=== PATIENT | female | born 1975 | race Caucasian/White ===

== ENCOUNTER 2017-06-12 15:01 | Emergency (ER) | payer BC ==
[2017-06-12] MEDS ORDERED: Ketorolac 60 MG/2 ML SDV IM ONE (15:25)
--- NOTE | 2017-06-12 15:55 | EDM.PDOC ---
ED HPI GENERAL MEDICAL PROBLEM - General Chief Complaint: Lower Extremity Injury/Pain Stated Complaint: left foot pain from fall Time Seen by Provider: 06/12/17 15:25 Source of Information: Reports: Patient History Limitations: Reports: No Limitations - History of Present Illness INITIAL COMMENTS - FREE TEXT/NARRATIVE: HISTORY AND PHYSICAL: History of present illness: Patient is a 42-year-old female who presents to the emergency room today with complaints of left ankle pain after falling down one step. She states that she fell forward twisting her left ankle prior to arrival. Patient points to her left lateral ankle as the source of pain. Denies any previous injury to the affected extremity. Denies any numbness or tingling to the extremity. Denies hitting her head or any loss of consciousness. Review of systems: As per history of present illness and below otherwise all systems reviewed and negative. Past medical history: As per history of present illness and as reviewed below otherwise noncontributory. Surgical history: As per history of present illness and as reviewed below otherwise noncontributory. Social history: No reported history of drug or alcohol abuse. Family history: As per history of present illness and as reviewed below otherwise noncontributory. Physical exam: General: Well-developed and well-nourished 42-year-old female. Able to speak in full sentences without shortness of breath. Alert and oriented. HEENT: Atraumatic, normocephalic, pupils reactive, negative for conjunctival pallor or scleral icterus, mucous membranes moist, throat clear, neck supple, nontender, trachea midline. Lungs: Clear to auscultation, breath sounds equal bilaterally, chest nontender. Heart: S1S2, regular, negative for clicks, rubs, or JVD. Abdomen: Soft, nondistended, nontender. Negative for masses or hepatosplenomegaly. Negative for costovertebral tenderness. Pelvis: Stable nontender. Genitourinary: Deferred. Rectal: Deferred. Extremities/Skin: Mild swelling noted to left lateral ankle, tenderness with palpation. Strong pedal pulses bilaterally. Skin is warm, dry, intact. negative for cords or calf pain. Neurovascular unremarkable. Neuro: Awake, alert, oriented. Cranial nerves II through XII unremarkable. Cerebellum unremarkable. Motor and sensory unremarkable throughout. Exam nonfocal. Patient is weightbearing although this does cause her discomfort to the left lower extremity. Palpated the patella and the proximal tib-fib with no discomfort or tenderness. Patient does have tenderness above the left lateral ankle into the distal fibula. Patient has full range of motion of the knee with a negative drawer test. Offered the patient some Toradol for discomfort, which she is agreeable to at this time. Discussed with patient the x-ray findings. She needs to follow-up with orthopedic provider in the next 1-2 days. Instructed patient to take the pain medication as prescribed. She may take additional ibuprofen as needed for breakthrough pain. Be non-weightbearing to the affected extremity and wear the Cam Walker boot and crutches as directed. Rest ice and elevate the affected extremity. Diagnostics: X-ray Therapeutics: Toradol Impression: Nondisplaced fibula fracture, left Plan: 1. Please use the cam walker boot and crutches as directed over the next couple days. Rest, ice, elevate the affected extremity throughout the day. 2. You may take Tylenol and/or ibuprofen as needed throughout the day for pain and swelling relief. Please use the [place] as needed for pain and discomfort. This medication may cause drowsiness he do not take it when needing to be functioning or driving. 3. If you continue to have problems and would like you to follow-up with orthopedic provider in the next 1-2 days. Return to the ED as needed as discussed Definitive disposition and diagnosis as appropriate pending reevaluation and review of above. Onset: Today Duration: Hour(s): Location: Reports: Lower Extremity, Left left foot Pain Score (Numeric/FACES): 8 - Related Data Allergies Allergy/AdvReac Type Severity Reaction Status Date / Time No Known Allergies Allergy Verified 06/12/17 15:03 Home Meds: Home Meds . [No Known Home Meds] 06/12/17 [History] Past Medical History - Past Health History Medical/Surgical History: Denies Medical/Surgical History [employer] History: Reports: Social & Family History - Family History Family Medical History: Noncontributory - Tobacco Use Smoking Status *Q: Never Smoker - Recreational Drug Use Recreational Drug Use: No Review of Systems - Review of Systems Review Of Systems: ROS reveals no pertinent complaints other than HPI. ED EXAM, GENERAL - Physical Exam Exam: See Below (See dictation) Course - Vital Signs Last Recorded V/S: Last Vital Signs Temp 36.7 C 06/12/17 15:01 Pulse 85 06/12/17 15:01 Resp 18 06/12/17 15:01 BP 134/77 06/12/17 15:01 Pulse Ox 96 06/12/17 15:01 - Orders/Labs/Meds Orders: Active Orders 24 hr Category Date Time Status DME for Discharge [COMM] Stat Oth 06/12/17 16:20 Ordered Meds: Medications Discontinued Medications Generic Name Dose Route Start Last Admin Trade Name Lenny PRN Reason Stop Dose Admin Ketorolac Tromethamine 60 mg 06/12/17 15:25 06/12/17 15:35 Toradol IM 06/12/17 15:26 60 mg ONETIME ONE Administration Departure - Departure Time of Disposition: 16:23 Disposition: Home, Self-Care 01 Condition: Good Clinical Impression: Fibula fracture Qualifiers: Encounter type: initial encounter Fibula location: distal Fracture type: closed Fracture morphology: unspecified fracture morphology Laterality: left Qualified Code(s): S82.832A - Other fracture of upper and lower end of left fibula, initial encounter for closed fracture - Discharge Information Referrals: PCP,None [Primary Care Provider] - Forms: ED Department Discharge Additional Instructions: My general discharge The following information is given to patients seen in the emergency department who are being discharged to home. This information is to outline your options for follow-up care. We provide all patients seen in our emergency department with a follow-up referral. The need for follow-up, as well as the timing and circumstances, are variable depending upon the specifics of your emergency department visit. If you don't have a primary care physician on staff, we will provide you with a referral. We always advise you to contact your personal physician following an emergency department visit to inform them of the circumstance of the visit and for follow-up with them and/or the need for any referrals to a consulting specialist. The emergency department will also refer you to a specialist when appropriate. This referral assures that you have the opportunity for follow-up care with a specialist. All of these measure are taken in an effort to provide you with optimal care, which includes your follow-up. Under all circumstances we always encourage you to contact your private physician who remains a resource for coordinating your care. When calling for follow-up care, please make the office aware that this follow-up is from your recent emergency room visit. If for any reason you are refused follow-up, please contact the [facility] Emergency Department at and asked to speak to the emergency department charge nurse. [facility] Professional [address], [address] [place] [address] 1. Please use the cam walker boot and crutches as directed over the next couple days. Rest, ice, elevate the affected extremity throughout the day. 2. You may take ibuprofen as needed throughout the day for pain and swelling relief. Please use the [place] as needed for pain and discomfort. This medication may cause drowsiness he do not take it when needing to be functioning or driving. 3. Please follow-up with orthopedic provider in the next 1-2 days. Return to the ED as needed as discussed - My Orders Last 24 Hours: My Active Orders 06/12/17 16:20 DME for Discharge [COMM] Stat - Assessment/Plan Last 24 Hours: My Active Orders 06/12/17 16:20 DME for Discharge [COMM] Stat
--- NOTE | 2017-06-12 16:07 | CR ---
EXAMINATION: Left ankle HISTORY: Pain COMPARISON: None TECHNIQUE: 3 views FINDINGS/IMPRESSION: There is a nondisplaced distal fibular fracture noted with overlying soft tissue swelling. Remaining osseous structures joint spaces appear intact. Bone mineralization and ankle mor tise are otherwise preserved.
[2017-06-12 16:42] VITALS: BP 142/76
== END 2017-06-12 16:40 | disposition home or self-care (01) ==
LOC: MW.ED 15:01
DX: S82.832A Other fracture of upper and lower end of left fibula, initial encounter for closed fracture (principal); W10.9XXA Fall (on) (from) unspecified stairs and steps, initial encounter
CPT/HCPCS: 73610; 96372; 99283; J1885

== ENCOUNTER 2020-02-27 19:18 | Observation (INO) | payer BC ==
[2020-02-27] MEDS ORDERED: Sodium Chloride 0.9% 10 ML Syringe FLUSH PRN (19:19)
[2020-02-27] MEDS ORDERED: Sodium Chloride 0.9% 2.5 ML Syringe FLUSH PRN (19:19)
--- NOTE | 2020-02-27 19:22 | EDM.PDOC ---
ED HPI GENERAL MEDICAL PROBLEM - General Chief Complaint: Chest Pain Stated Complaint: CHEST ISSUES Time Seen by Provider: 02/27/20 19:19 Source of Information: Reports: Patient History Limitations: Reports: No Limitations - History of Present Illness INITIAL COMMENTS - FREE TEXT/NARRATIVE: 44-year-old female with no past medical or surgical history presents with left- sided chest discomfort. She was asleep in her chest discomfort woke her up, rated at 10/10, described as tightness, constant, radiates to her left shoulder blade, with no alleviating or exacerbating factors. Associated with shortness of breath, nausea, clamminess. She took 3 ibuprofen and 2 Tylenol, currently pain is back down to 1/10 described as aching sensation in her upper back. She denies fever, cough, palpitations. She denies any recent surgery, long travels, control use, leg pain or swelling, recent trauma, history of DVT or PE. She does not smoke and she does not take any medications. ROS: A 10-point review of systems, other than pertinent positives and negatives as stated per HPI, is otherwise negative PHYSICAL EXAM General: AOx4, GCS = 15, No distress HEENT: dry mucous membrane Neck: supple, no meningismus, no Kernig or Brudzinski Cardiac: S1S2 RRR Chest wall: Nontender to chest wall. Respiratory: CTAB, no crackles or rales, no wheezing Abdomen: Soft, nontender, no rebound or guarding, nondistended, no pulsatile mass. 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 EKG and rhythm strip interpreted by me at 0720 Course - Vital Signs Last Recorded V/S: Last Vital Signs Temp 98.3 F 02/27/20 19:19 Pulse 70 02/27/20 23:32 Resp 18 02/27/20 23:32 BP 121/75 02/27/20 23:32 Pulse Ox 95 02/27/20 23:32 - Orders/Labs/Meds Orders: Active Orders 24 hr Category Date Time Status Cardiac Monitoring [RC] . DIRECTED Care 02/27/20 19:19 Active EKG Documentation Completion [RC] STAT Care 02/27/20 19:19 Active Pulse Oximetry [RC] ASDIRECTED Care 02/27/20 19:19 Active Sodium Chloride 0.9% [Saline Flush] Med 02/27/20 19:19 Active 10 ml FLUSH ASDIRECTED PRN Sodium Chloride 0.9% [Saline Flush] Med 02/27/20 19:19 Active 2.5 ml FLUSH ASDIRECTED PRN Saline Lock Insert [OM.PC] Stat Oth 02/27/20 19:19 Ordered Medication Orders Sodium Chloride (Saline Flush) 10 ml FLUSH ASDIRECTED PRN PRN Reason: Keep Vein Open Sodium Chloride (Saline Flush) 2.5 ml FLUSH ASDIRECTED PRN PRN Reason: Keep Vein Open Labs: Laboratory Tests 02/27/20 02/27/20 02/27/20 Range/Units 19:25 19:25 19:25 WBC 9.55 (4.0-11.0) K/uL RBC 4.55 (4.30-5.90) M/uL Hgb 13.9 (12.0-16.0) g/dL Hct 42.6 (36.0-46.0) % MCV 93.6 (80.0-98.0) fL MCH 30.5 (27.0-32.0) pg MCHC 32.6 (31.0-37.0) g/dL RDW Std Deviation 46.9 (28.0-62.0) fl RDW Coeff of Gilbert 14 (11.0-15.0) % Plt Count 255 (150-400) K/uL MPV 10.10 (7.40-12.00) fL Neut % (Auto) 71.5 (48.0-80.0) % Lymph % (Auto) 18.6 (16.0-40.0) % [place] % (Auto) 9.0 (0.0-15.0) % Eos % (Auto) 0.7 (0.0-7.0) % Baso % (Auto) 0.2 (0.0-1.5) % Neut # (Auto) 6.8 H (1.4-5.7) K/uL Lymph # (Auto) 1.8 (0.6-2.4) K/uL [place] # (Auto) 0.9 H (0.0-0.8) K/uL Eos # (Auto) 0.1 (0.0-0.7) K/uL Baso # (Auto) 0.0 (0.0-0.1) K/uL Nucleated RBC % 0.0 /100WBC Nucleated RBCs # 0 K/uL INR 0.98 Sodium 137 (136-145) mmol/L Potassium 3.5 (3.5-5.1) mmol/L Chloride 101 (98-107) mmol/L Carbon Dioxide 24.3 (21.0-32.0) mmol/L BUN 11 (7.0-18.0) mg/dL Creatinine 1.0 (0.6-1.0) mg/dL Est Cr Clr Drug Dosing 61.35 mL/min Estimated GFR (MDRD) 60.0 ml/min Glucose 111 H (74-106) mg/dL Calcium 9.2 (8.5-10.1) mg/dL Total Bilirubin 0.3 (0.2-1.0) mg/dL AST 18 (15-37) IU/L ALT 25 (14-63) IU/L Alkaline Phosphatase 73 (46-116) U/L Troponin I < 0.050 (0.000-0.056) ng/mL Total Protein 7.7 (6.4-8.2) g/dL Albumin 4.2 (3.4-5.0) g/dL Globulin 3.5 (2.6-4.0) g/dL Albumin/Globulin Ratio 1.2 (0.9-1.6) SARS-CoV-2 RNA (RT-PCR) (NEGATIVE) 02/27/20 02/27/20 Range/Units 21:20 21:33 WBC (4.0-11.0) K/uL RBC (4.30-5.90) M/uL Hgb (12.0-16.0) g/dL Hct (36.0-46.0) % MCV (80.0-98.0) fL MCH (27.0-32.0) pg MCHC (31.0-37.0) g/dL RDW Std Deviation (28.0-62.0) fl RDW Coeff of Gilbert (11.0-15.0) % Plt Count (150-400) K/uL MPV (7.40-12.00) fL Neut % (Auto) (48.0-80.0) % Lymph % (Auto) (16.0-40.0) % [place] % (Auto) (0.0-15.0) % Eos % (Auto) (0.0-7.0) % Baso % (Auto) (0.0-1.5) % Neut # (Auto) (1.4-5.7) K/uL Lymph # (Auto) (0.6-2.4) K/uL [place] # (Auto) (0.0-0.8) K/uL Eos # (Auto) (0.0-0.7) K/uL Baso # (Auto) (0.0-0.1) K/uL Nucleated RBC % /100WBC Nucleated RBCs # K/uL INR Sodium (136-145) mmol/L Potassium (3.5-5.1) mmol/L Chloride (98-107) mmol/L Carbon Dioxide (21.0-32.0) mmol/L BUN (7.0-18.0) mg/dL Creatinine (0.6-1.0) mg/dL Est Cr Clr Drug Dosing mL/min Estimated GFR (MDRD) ml/min Glucose (74-106) mg/dL Calcium (8.5-10.1) mg/dL Total Bilirubin (0.2-1.0) mg/dL AST (15-37) IU/L ALT (14-63) IU/L Alkaline Phosphatase (46-116) U/L Troponin I < 0.050 (0.000-0.056) ng/mL Total Protein (6.4-8.2) g/dL Albumin (3.4-5.0) g/dL Globulin (2.6-4.0) g/dL Albumin/Globulin Ratio (0.9-1.6) SARS-CoV-2 RNA (RT-PCR) NEGATIVE (NEGATIVE) Meds: Medications Generic Name Dose Route Start Last Admin Trade Name Freq PRN Reason Stop Dose Admin Sodium Chloride 10 ml 02/27/20 19:19 Saline Flush FLUSH ASDIRECTED PRN Keep Vein Open Sodium Chloride 2.5 ml 02/27/20 19:19 Saline Flush FLUSH ASDIRECTED PRN Keep Vein Open Discontinued Medications Generic Name Dose Route Start Last Admin Trade Name Freq PRN Reason Stop Dose Admin Iopamidol 50 ml 02/27/20 20:46 02/27/20 20:46 [id number] (76%) IV 02/27/20 20:47 50 ml ONETIME STA Administration - Re-Assessments/Exams Free Text/Narrative Re-Assessment/Exam: 02/27/20 23:[address] Dee, who agrees to admit to obs/tele and assume care at this point. The hospitalist's documentation supersedes all other documentation on this patient with regard to any conflicts or discrepancies from this point forward. Any emergency conditions have been treated to the ability of the ED prior to admission. MDM: Patient has a HEART score of 4, will admit for further workup. She is chest pain free at the moment. Departure - Departure Time of Disposition: 23:35 Disposition: Refer to Observation Condition: Good Clinical Impression: Atypical chest pain Referrals: PCP,Unknown [Primary Care Provider] - Forms: ED Department Discharge Sepsis Event Note (ED) - Focused Exam Vital Signs: Vital Signs Temp Pulse Resp BP Pulse Ox 02/27/20 23:32 70 18 121/75 95 02/27/20 22:34 70 16 157/81 H 99 02/27/20 21:30 72 18 156/74 H 97 02/27/20 19:19 98.3 F 99 18 153/88 H 98 - My Orders Last 24 Hours: My Active Orders 02/27/20 19:19 Cardiac Monitoring [RC] . DIRECTED EKG Documentation Completion [RC] STAT Pulse Oximetry [RC] ASDIRECTED Sodium Chloride 0.9% [Saline Flush] 10 ml FLUSH ASDIRECTED PRN Sodium Chloride 0.9% [Saline Flush] 2.5 ml FLUSH ASDIRECTED PRN Saline Lock Insert [OM.PC] Stat - Assessment/Plan Last 24 Hours: My Active Orders 02/27/20 19:19 Cardiac Monitoring [RC] . DIRECTED EKG Documentation Completion [RC] STAT Pulse Oximetry [RC] ASDIRECTED Sodium Chloride 0.9% [Saline Flush] 10 ml FLUSH ASDIRECTED PRN Sodium Chloride 0.9% [Saline Flush] 2.5 ml FLUSH ASDIRECTED PRN Saline Lock Insert [OM.PC] Stat
[2020-02-27 19:55] LABS: BLOOD UREA NITROGEN,BUN 11 mg/dL (7.0-18.0); CARBON DIOXIDE,CO2 24.3 mmol/L (21.0-32.0); CHLORIDE,CL 101 mmol/L (98-107); GLUCOSE RANDOM 111 mg/dL (74-106); POTASSIUM,K 3.5 mmol/L (3.5-5.1); SODIUM,NA 137 mmol/L (136-145)
--- NOTE | 2020-02-27 19:59 | CR ---
Chest: 2 views of the chest were obtained. Comparison: No prior chest imaging. Heart size and mediastinum are normal. Lungs are clear with no acute parenchymal change. Bony structures appear within normal limits for the patient's age. Impression: 1. Nothing acute is appreciated on 2 view chest x-ray. Diagnostic code #1 Study was dictated in MDT
[2020-02-27] MEDS ORDERED: Iopamidol 755 MG/ML 50 ML Bottle IV STA (20:46)
--- NOTE | 2020-02-27 20:58 | CT ---
CT chest Technique: Multiple axial sections through the chest were obtained. Intravenous contrast was utilized. Study has been performed as a pulmonary angiogram protocol. Findings: Pulmonary arteries are moderately well-opacified. No filling defects are seen within the pulmonary arteries. No findings of pulmonary embolism are seen. Visualized upper abdominal structures shows no discrete abnormality. No pericardial thickening is seen. Aorta shows no aneurysm or dissection. Mediastinum and hilar regions show no adenopathy or mass. Lungs show scattered hazy groundglass appearance. This can represent bronchiolitis or viral infections. Diffuse subsegmental atelectasis can also be in etiology if laboratory findings are negative. Bone window settings were reviewed which shows no acute osseous finding. Impression: 1. No findings of pulmonary embolism. 2. Hazy groundglass appearance as described above. Diagnostic code #3 Study was dictated in MDT
[2020-02-28] MEDS ORDERED: Albuterol/Ipratropium 3.0-0.5 MG/3 ML Neb Soln NEB PRN (00:38)
[2020-02-28] MEDS ORDERED: Melatonin 3 MG Tab PO ONE (01:25)
[2020-02-28 07:01] LABS: HEMOGLOBIN A1C 5.8 % (4.5-6.2)
[2020-02-28 07:17] LABS: BLOOD UREA NITROGEN,BUN 8 mg/dL (7.0-18.0); CARBON DIOXIDE,CO2 25.3 mmol/L (21.0-32.0); CHLORIDE,CL 103 mmol/L (98-107); GLUCOSE RANDOM 104 mg/dL (74-106); POTASSIUM,K 3.5 mmol/L (3.5-5.1); SODIUM,NA 138 mmol/L (136-145)
--- NOTE | 2020-02-28 08:31 | PCM.HP.2 ---
<Micah Navarrete - Last Filed: 02/28/20 13:57> H&P History of Present Illness - General Date of Service: 02/28/20 Admit Problem/Dx: Admission Diagnosis/Problem Admission Diagnosis/Problem Atypical chest pain Source of Information: Patient History Limitations: Reports: No Limitations - History of Present Illness Initial Comments - Free Text/Narative: 44-year-old female with no past medical or surgical history presents with left- sided chest discomfort. She was asleep in her chest discomfort woke her up, rated at 10/10, described as tightness, constant, radiates to her left shoulder blade, with no alleviating or exacerbating factors. Associated with shortness of breath, nausea, clamminess. ED course: took 3 ibuprofen and 2 Tylenol at home, currently pain is back down to 1/10 described as aching sensation in her upper back. She denies fever, cough, palpitations. She denies any recent surgery, long travels, control use, leg pain or swelling, recent trauma, history of DVT or PE. She does not smoke and she does not take any medications. Bedside: pt. not feeling any pain and or discomfort ; mentioned pain at onset felt like a :band around her chest" ; otherwise this has resolved. Cannot think of any alleviating/exacerbating factors. Denies any fevers, chills, BA. COVID Negative. back Pain Score (Numeric/FACES): 1 - Related Data Allergies/Adverse Reactions: Allergies Allergy/AdvReac Type Severity Reaction Status Date / Time No Known Allergies Allergy Verified 02/28/20 01:26 Home Medications: Home Meds Cannabidiol (Cbd) Extract [CBD Oil] 1 each PO DAILY 02/27/20 [History] Melatonin 10 mg PO BEDTIME 02/27/20 [History] Aspirin 81 mg PO DAILY tab.chew 02/28/20 [Rx] Omeprazole 20 mg PO ACBREAKFAST cap.cr 02/28/20 [Rx] atorvaSTATin [Lipitor] 10 mg PO BEDTIME 14 Days #14 tablet 02/28/20 [Rx] Past Medical History - Past Health History Medical/Surgical History: Denies Medical/Surgical History [employer] History: Reports: - Infectious Disease History Infectious Disease History: Reports: Chicken Pox Social & Family History - Family History Family Medical History: Noncontributory - Tobacco Use Smoking Status *Q: Former Smoker Years of Tobacco use: 5 Used Tobacco, but Quit: Yes Month/Year Tobacco Last Used: Unknown - Caffeine Use Caffeine Use: Reports: Energy Drinks - Recreational Drug Use Recreational Drug Use: No H&P Review of Systems - Review of Systems: Review Of Systems: See Below General: Reports: No Symptoms HEENT: Reports: No Symptoms Pulmonary: Reports: No Symptoms Cardiovascular: Reports: No Symptoms Gastrointestinal: Reports: No Symptoms Genitourinary: Reports: No Symptoms Musculoskeletal: Reports: No Symptoms Skin: Reports: No Symptoms Psychiatric: Reports: No Symptoms Neurological: Reports: No Symptoms Immunologic: Reports: No Symptoms Exam - Exam Exam: See Below - Vital Signs Vital Signs: Last Vital Signs Temp 96.8 F L 02/28/20 04:00 Pulse 95 02/28/20 04:00 Resp 16 02/28/20 04:00 BP 122/75 02/28/20 04:00 Pulse Ox 96 02/28/20 04:00 Weight: 100.244 kg - Exam General: Alert, Oriented, Cooperative HEENT: EOMI Neck: Supple, Trachea Midline Lungs: Clear to Auscultation, Normal Respiratory Effort Cardiovascular: Regular Rate, Regular Rhythm GI/Abdominal Exam: Soft, Non-Tender Extremities: Normal Inspection, Normal Range of Motion Neurological: Cranial Nerves Intact Neuro Extensive - Mental Status: Alert, Oriented x3, Normal Mood/Affect Psychiatric: Alert, Normal Affect, Normal Mood - Patient Data Lab Results Last 24 hrs: Laboratory Results - last 24 hr 02/27/20 02/27/20 02/27/20 Range/Units 19:25 19:25 19:25 WBC 9.55 (4.0-11.0) K/uL RBC 4.55 (4.30-5.90) M/uL Hgb 13.9 (12.0-16.0) g/dL Hct 42.6 (36.0-46.0) % MCV 93.6 (80.0-98.0) fL MCH 30.5 (27.0-32.0) pg MCHC 32.6 (31.0-37.0) g/dL RDW Std Deviation 46.9 (28.0-62.0) fl RDW Coeff of Gilbert 14 (11.0-15.0) % Plt Count 255 (150-400) K/uL MPV 10.10 (7.40-12.00) fL Neut % (Auto) 71.5 (48.0-80.0) % Lymph % (Auto) 18.6 (16.0-40.0) % [place] % (Auto) 9.0 (0.0-15.0) % Eos % (Auto) 0.7 (0.0-7.0) % Baso % (Auto) 0.2 (0.0-1.5) % Neut # (Auto) 6.8 H (1.4-5.7) K/uL Lymph # (Auto) 1.8 (0.6-2.4) K/uL [place] # (Auto) 0.9 H (0.0-0.8) K/uL Eos # (Auto) 0.1 (0.0-0.7) K/uL Baso # (Auto) 0.0 (0.0-0.1) K/uL Nucleated RBC % 0.0 /100WBC Nucleated RBCs # 0 K/uL INR 0.98 Sodium 137 (136-145) mmol/L Potassium 3.5 (3.5-5.1) mmol/L Chloride 101 (98-107) mmol/L Carbon Dioxide 24.3 (21.0-32.0) mmol/L BUN 11 (7.0-18.0) mg/dL Creatinine 1.0 (0.6-1.0) mg/dL Est Cr Clr Drug Dosing 61.35 mL/min Estimated GFR (MDRD) 60.0 ml/min Glucose 111 H (74-106) mg/dL Hemoglobin A1c (4.5-6.2) % Calcium 9.2 (8.5-10.1) mg/dL Phosphorus (2.6-4.7) mg/dL Magnesium (1.8-2.4) mg/dL Total Bilirubin 0.3 (0.2-1.0) mg/dL AST 18 (15-37) IU/L ALT 25 (14-63) IU/L Alkaline Phosphatase 73 (46-116) U/L Troponin I < 0.050 (0.000-0.056) ng/mL Total Protein 7.7 (6.4-8.2) g/dL Albumin 4.2 (3.4-5.0) g/dL Globulin 3.5 (2.6-4.0) g/dL Albumin/Globulin Ratio 1.2 (0.9-1.6) Triglycerides (0-200) mg/dL Cholesterol (50-200) mg/dL LDL Cholesterol, Calc (60-180) mg/dL VLDL Cholesterol (5-55) mg/dL HDL Cholesterol (40-60) mg/dL Cholesterol/HDL Ratio (3.3-6.0) TSH 3rd Generation (0.36-3.74) uIU/mL SARS-CoV-2 RNA (RT-PCR) (NEGATIVE) 02/27/20 02/27/20 02/28/20 Range/Units 21:20 21:33 01:05 WBC (4.0-11.0) K/uL RBC (4.30-5.90) M/uL Hgb (12.0-16.0) g/dL Hct (36.0-46.0) % MCV (80.0-98.0) fL MCH (27.0-32.0) pg MCHC (31.0-37.0) g/dL RDW Std Deviation (28.0-62.0) fl RDW Coeff of Gilbert (11.0-15.0) % Plt Count (150-400) K/uL MPV (7.40-12.00) fL Neut % (Auto) (48.0-80.0) % Lymph % (Auto) (16.0-40.0) % [place] % (Auto) (0.0-15.0) % Eos % (Auto) (0.0-7.0) % Baso % (Auto) (0.0-1.5) % Neut # (Auto) (1.4-5.7) K/uL Lymph # (Auto) (0.6-2.4) K/uL [place] # (Auto) (0.0-0.8) K/uL Eos # (Auto) (0.0-0.7) K/uL Baso # (Auto) (0.0-0.1) K/uL Nucleated RBC % /100WBC Nucleated RBCs # K/uL INR Sodium (136-145) mmol/L Potassium (3.5-5.1) mmol/L Chloride (98-107) mmol/L Carbon Dioxide (21.0-32.0) mmol/L BUN (7.0-18.0) mg/dL Creatinine (0.6-1.0) mg/dL Est Cr Clr Drug Dosing mL/min Estimated GFR (MDRD) ml/min Glucose (74-106) mg/dL Hemoglobin A1c (4.5-6.2) % Calcium (8.5-10.1) mg/dL Phosphorus (2.6-4.7) mg/dL Magnesium (1.8-2.4) mg/dL Total Bilirubin (0.2-1.0) mg/dL AST (15-37) IU/L ALT (14-63) IU/L Alkaline Phosphatase (46-116) U/L Troponin I < 0.050 <0.050 (0.000-0.056) ng/mL Total Protein (6.4-8.2) g/dL Albumin (3.4-5.0) g/dL Globulin (2.6-4.0) g/dL Albumin/Globulin Ratio (0.9-1.6) Triglycerides (0-200) mg/dL Cholesterol (50-200) mg/dL LDL Cholesterol, Calc (60-180) mg/dL VLDL Cholesterol (5-55) mg/dL HDL Cholesterol (40-60) mg/dL Cholesterol/HDL Ratio (3.3-6.0) TSH 3rd Generation (0.36-3.74) uIU/mL SARS-CoV-2 RNA (RT-PCR) NEGATIVE (NEGATIVE) 02/28/20 02/28/20 Range/Units 06:25 06:25 WBC (4.0-11.0) K/uL RBC (4.30-5.90) M/uL Hgb (12.0-16.0) g/dL Hct (36.0-46.0) % MCV (80.0-98.0) fL MCH (27.0-32.0) pg MCHC (31.0-37.0) g/dL RDW Std Deviation (28.0-62.0) fl RDW Coeff of Gilbert (11.0-15.0) % Plt Count (150-400) K/uL MPV (7.40-12.00) fL Neut % (Auto) (48.0-80.0) % Lymph % (Auto) (16.0-40.0) % [place] % (Auto) (0.0-15.0) % Eos % (Auto) (0.0-7.0) % Baso % (Auto) (0.0-1.5) % Neut # (Auto) (1.4-5.7) K/uL Lymph # (Auto) (0.6-2.4) K/uL [place] # (Auto) (0.0-0.8) K/uL Eos # (Auto) (0.0-0.7) K/uL Baso # (Auto) (0.0-0.1) K/uL Nucleated RBC % /100WBC Nucleated RBCs # K/uL INR Sodium 138 (136-145) mmol/L Potassium 3.5 (3.5-5.1) mmol/L Chloride 103 (98-107) mmol/L Carbon Dioxide 25.3 (21.0-32.0) mmol/L BUN 8 (7.0-18.0) mg/dL Creatinine 0.6 (0.6-1.0) mg/dL Est Cr Clr Drug Dosing 102.25 mL/min Estimated GFR (MDRD) > 60.0 ml/min Glucose 104 (74-106) mg/dL Hemoglobin A1c 5.8 (4.5-6.2) % Calcium 8.5 (8.5-10.1) mg/dL Phosphorus 3.8 (2.6-4.7) mg/dL Magnesium 2.2 (1.8-2.4) mg/dL Total Bilirubin (0.2-1.0) mg/dL AST (15-37) IU/L ALT (14-63) IU/L Alkaline Phosphatase (46-116) U/L Troponin I (0.000-0.056) ng/mL Total Protein (6.4-8.2) g/dL Albumin (3.4-5.0) g/dL Globulin (2.6-4.0) g/dL Albumin/Globulin Ratio (0.9-1.6) Triglycerides 82 (0-200) mg/dL Cholesterol 198 (50-200) mg/dL LDL Cholesterol, Calc 139 (60-180) mg/dL VLDL Cholesterol 16 (5-55) mg/dL HDL Cholesterol 43 (40-60) mg/dL Cholesterol/HDL Ratio 4.6 (3.3-6.0) TSH 3rd Generation 1.53 (0.36-3.74) uIU/mL SARS-CoV-2 RNA (RT-PCR) (NEGATIVE) Result Diagrams: 02/27/20 19:25 02/28/20 06:25 Sepsis Event Note - Evaluation Sepsis Screening Result: No Definite Risk - Focused Exam Vital Signs: Vital Signs Temp Pulse Resp BP Pulse Ox Pulse Ox 02/28/20 04:00 96.8 F L 95 16 122/75 96 02/28/20 01:00 98.2 F 80 18 120/70 98 98 02/27/20 23:32 70 18 121/75 95 02/27/20 22:34 70 16 157/81 H 99 02/27/20 21:30 72 18 156/74 H 97 Date Exam was Performed: 02/28/20 Time Exam was Performed: 13:57 Problem List Initiated/Reviewed/Updated: Yes Orders Last 24hrs: Active Orders 24 hr Category Date Time Status Admission Status [Patient Status] [ADT] Stat ADT 02/27/20 23:36 Active Ambulate [RC] ASDIRECTED Care 02/28/20 00:39 Active Antiembolic Devices [RC] PER UNIT ROUTINE Care 02/28/20 00:42 Active Cardiac Monitoring [RC] . DIRECTED Care 02/27/20 19:19 Active Oxygen Therapy [RC] PRN Care 02/28/20 00:40 Active Pulse Oximetry [RC] ASDIRECTED Care 02/27/20 19:19 Active RT Aerosol Therapy [RC] ASDIRECTED Care 02/28/20 00:39 Active Telemetry Monitoring [Cardiac Monitoring] [RC] . Care 02/28/20 01:03 Active DIRECTED Vital Signs [RC] Q4H Care 02/28/20 04:00 Active Heart Healthy Diet [DIET] Diet 02/28/20 Breakfast Active Echo Comp wo Cont [US] Routine Exams 02/28/20 00:41 Ordered Albuterol/Ipratropium [DuoNeb 3.0-0.5 MG/3 ML] Med 02/28/20 00:38 Active 3 ml NEB Q4HRRT PRN Aspirin Med 02/28/20 09:00 Active 81 mg PO DAILY Sodium Chloride 0.9% [Saline Flush] Med 02/27/20 19:19 Active 10 ml FLUSH ASDIRECTED PRN Sodium Chloride 0.9% [Saline Flush] Med 02/27/20 19:19 Active 2.5 ml FLUSH ASDIRECTED PRN atorvaSTATin [Lipitor] Med 02/28/20 21:00 Active 10 mg PO BEDTIME SCD [Sequential Compression Device] [OM.PC] Routine Oth 02/28/20 00:42 Ordered Saline Lock Insert [OM.PC] Stat Oth 02/27/20 19:19 Ordered Medication Orders Albuterol/Ipratropium (Duoneb 3.0-0.5 Mg/3 Ml) 3 ml NEB Q4HRRT PRN PRN Reason: Shortness of Breath Aspirin (Aspirin) 81 mg PO DAILY SIDNEY Atorvastatin Calcium (Lipitor) 10 mg PO BEDTIME SIDNEY Sodium Chloride (Saline Flush) 10 ml FLUSH ASDIRECTED PRN PRN Reason: Keep Vein Open Sodium Chloride (Saline Flush) 2.5 ml FLUSH ASDIRECTED PRN PRN Reason: Keep Vein Open Assessment/Plan Comment:: Assessment: Admitted to obs and telemetry. patient was admitted for CP w. concerns for ACS. Troponin x 3 was negative. CXR negative. Mild diffuse ground-glass opacities appreciated n Chest CT however pt did not endorse any problems breathing and or palpitations. LAbs unremarkable otherwise. Advised to continue home medication. Received ASA in ED. Telemetry was NSR w.o any elevations. . Lipid panel negative. COVID negative. ECHO ordered and performed: awaiting results Previous smoker but has been 10 years since last cigarette. No illicit drug history. pt .requesting to go home since she is not having any acute complaints. Follow up wit PCP scheduled. Advised to Return if symptoms develop. pt understood. Advised can follow up with PCP to discussed need for repeat CT scan of chest if necessary; currently satting well on room air. Patient was discharged thereafter. <Debra Dee - Last Filed: 03/01/20 19:40> H&P History of Present Illness - General Admit Problem/Dx: Admission Diagnosis/Problem Admission Diagnosis/Problem Atypical chest pain Exam - Vital Signs Vital Signs: Last Vital Signs Temp 36 C L 02/28/20 08:00 Pulse 79 02/28/20 08:00 Resp 16 02/28/20 08:00 BP 111/54 L 02/28/20 08:00 Pulse Ox 95 02/28/20 08:00 - Patient Data Result Diagrams: 02/27/20 19:25 02/28/20 06:25 Sepsis Event Note - Focused Exam Date Exam was Performed: 03/01/20 Time Exam was Performed: 19:39 Assessment/Plan Comment:: I performed a history and physical exam of the patient and discussed management with resident. I have reviewed the residents note and agree with documented findings and plan unless otherwise specified in my note.
[2020-02-28] MEDS ORDERED: Heparin Sodium 5,000 Units/ML Vial SUBCUT SCH (08:45)
[2020-02-28] MEDS ORDERED: Aspirin 81 MG Tab.Chew PO SCH (09:00)
[2020-02-28 12:02] VITALS: BP 111/54; PULSE 79
[2020-02-28] MEDS ORDERED: atorvaSTATin 10 MG Tab PO SCH (21:00)
[2020-02-28] MEDS ORDERED: Melatonin 10 MG) PO SCH (21:00)
[2020-02-29] MEDS ORDERED: Omeprazole 20 MG Cap.CR PO SCH (07:30)
--- NOTE | 2020-02-29 13:13 | ECHO ---
EXAM DATE: 02/27/20 PATIENT'S AGE: 44 The ECHO report has been scanned into [employer] and can be seen in this patient's EMR (Electronic Medical Record) under the REPORTS section. The report has also been scanned into PACS. ELISABETH
== END 2020-02-28 13:20 | disposition home or self-care (01) ==
LOC: MW.ED 19:18 → MW.MS 23:36
PROVIDERS: ADMIT Student in an Organized Health Care Education/Training Program; ATTEND Student in an Organized Health Care Education/Training Program
DX: R07.89 Other chest pain (principal); Z20.828 Contact with and (suspected) exposure to other viral communicable diseases; Z87.891 Personal history of nicotine dependence; Z79.82 Long term (current) use of aspirin; Z79.899 Other long term (current) drug therapy
CPT/HCPCS: 36415; 71046; 71275; 80048; 80053; 80061; 83036; 83735; 84100; 84443; 84484; 85025; 85610; 87635; 93005; 93306; A9270; J1644; Q9967; 99284; 99285-25; U0002

== ENCOUNTER 2020-07-04 09:44 | Day surgery (SDC) | payer BC ==
[~2020-07-04 09:44] MED LIST: Lactated Ringers 1,000 ML IV SCH; Sodium Chloride 0.9% 10 ML SDV IV PRN; Sodium Chloride 0.9% 10 ML Syringe FLUSH PRN; Sodium Chloride 0.9% 2.5 ML Syringe FLUSH PRN
[2020-07-04] MEDS ORDERED: Propofol 200 MG/20 ML SDV ONE (10:59)
[2020-07-04] MEDS ORDERED: Midazolam 1 MG/ML 2 ML SDV ONE (10:59)
[2020-07-04] MEDS ORDERED: fentaNYL 100 MCG/2 ML SDV ONE (10:59)
--- NOTE | 2020-07-04 11:06 | PCM.PREANE ---
Preanesthetic Assessment - Anesthesia/Transfusion/Family Hx Anesthesia History: Prior Anesthesia Without Reaction Family History of Anesthesia Reaction: No Transfusion History: No Prior Transfusion(s) - Review of Systems General: No Symptoms Pulmonary: No Symptoms Cardiovascular: No Symptoms Neurological: No Symptoms Other: Reports: None - Physical Assessment NPO Status Date: 07/03/20 Height: 5 ft 4 in Weight: 101.151 kg ASA Class: 2 Mental Status: Alert & Oriented x3 Airway Class: Mallampati = 2 Dentition: Reports: Normal Dentition ROM/Head Extension: Full Lungs: Clear to Auscultation, Normal Respiratory Effort Cardiovascular: Regular Rate, Regular Rhythm - Lab Values: Laboratory Last Values Urine HCG, Qual NEGATIVE (NEGATIVE) 07/04/20 10:00 - Allergies Allergies/Adverse Reactions: Allergies Allergy/AdvReac Type Severity Reaction Status Date / Time No Known Allergies Allergy Verified 06/28/20 08:29 - Blood Blood Available: No - Anesthesia Plan Pre-Op Medication Ordered: None - Acknowledgements Anesthesia Type Planned: General Anesthesia (tiva) Pt an Appropriate Candidate for the Planned Anesthesia: Yes Alternatives and Risks of Anesthesia Discussed w Pt/Guardian: Yes Pt/Guardian Understands and Agrees with Anesthesia Plan: Yes PreAnesthesia Questionnaire - Past Health History Medical/Surgical History: Denies Medical/Surgical History HEENT History: Reports: Other (See Below) Other HEENT History: wears glasses/contacts Cardiovascular History: Reports: None Respiratory History: Reports: None Gastrointestinal History: Reports: Cholelithiasis, Chronic Diarrhea Genitourinary History: Reports: None 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: Musculoskeletal History: Reports: Fracture Other Musculoskeletal History: hx fx left lower leg Neurological History: Reports: None Psychiatric History: Reports: Anxiety, Depression Endocrine/Metabolic History: Reports: Obesity/BMI 30+ Other Endocrine/Metabolic History: thyroid nodule Hematologic History: Reports: None Immunologic History: Reports: None Oncologic (Cancer) History: Reports: None Dermatologic History: Reports: None - Infectious Disease History Infectious Disease History: Reports: Chicken Pox - Past Surgical History Head Surgeries/Procedures: Reports: None HEENT Surgical History: Reports: Oral Surgery Cardiovascular Surgical History: Reports: None Respiratory Surgical History: Reports: None GI Surgical History: Reports: None Female Surgical History: Reports: None Endocrine Surgical History: Reports: None Neurological Surgical History: Reports: None Musculoskeletal Surgical History: Reports: None Oncologic Surgical History: Reports: None Dermatological Surgical History: Reports: None - SUBSTANCE USE Tobacco Use Status *Q: Former Tobacco User Tobacco Use Within Last Twelve Months: No - HOME MEDS Home Medications: Home Meds Cannabidiol (Cbd) Extract [CBD Oil] 1 each PO BEDTIME 02/27/20 [History] Melatonin 10 mg PO BEDTIME 02/27/20 [History] PARoxetine HCL [Paroxetine HCl] 20 mg PO BEDTIME 06/28/20 [History] diphenhydrAMINE [Benadryl] 25 mg PO BEDTIME 06/28/20 [History] - CURRENT (IN HOUSE) MEDS Current Meds: Current Medications Lactated Ringer's (Ringers, Lactated) 1,000 mls @ 125 mls/hr IV ASDIRECTED SIDNEY Last Admin: 07/04/20 10:03 Dose: 125 mls/hr Documented by: Sodium Chloride (Saline Flush) 10 ml FLUSH ASDIRECTED PRN PRN Reason: Keep Vein Open Sodium Chloride (Saline Flush) 2.5 ml FLUSH ASDIRECTED PRN PRN Reason: Keep Vein Open Sodium Chloride (Saline Flush) 10 ml FLUSH ASDIRECTED PRN PRN Reason: Keep Vein Open Sodium Chloride (Saline Flush) 2.5 ml FLUSH ASDIRECTED PRN PRN Reason: Keep Vein Open Sodium Chloride (Normal Saline) 10 ml IV ASDIRECTED PRN PRN Reason: IV Use Discontinued Medications Fentanyl (Sublimaze) Confirm Administered Dose 100 mcg .ROUTE .STK-MED ONE Stop: 07/04/20 11:00 Lidocaine HCl (Xylocaine-Mpf 1%) Confirm Administered Dose 5 ml .ROUTE .STK-MED ONE Stop: 07/04/20 11:02 Midazolam HCl (Versed 1 Mg/Ml) Confirm Administered Dose 2 mg .ROUTE .STK-MED ONE Stop: 07/04/20 11:00 Propofol (Diprivan 20 Ml) Confirm Administered Dose 200 mg .ROUTE .STK-MED ONE Stop: 07/04/20 11:00
--- NOTE | 2020-07-04 11:41 | PCM.OPNOTE ---
- General Post-Op/Procedure Note Date of Surgery/Procedure: 07/04/20 Operative Procedure(s): Diagnostic Colonoscopy Findings: Normal colonoscopy Pre Op Diagnosis: Change in bowel habits Post-Op Diagnosis: Normal colonoscopy Anesthesia Technique: MAC Primary Surgeon: Sivan Barrett Condition: Good
[2020-07-04 12:01] VITALS: BP 113/79; PULSE 73
--- NOTE | 2020-07-04 12:34 | PCM.POSTAN ---
POST ANESTHESIA ASSESSMENT - MENTAL STATUS Mental Status: Alert, Oriented - VITAL SIGNS Vital Signs: Last Vital Signs Temp 97.6 F 07/04/20 11:39 Pulse 73 07/04/20 12:00 Resp 14 07/04/20 12:00 BP 113/79 07/04/20 12:00 Pulse Ox 96 07/04/20 12:00 - RESPIRATORY Respiratory Status: Respiratory Rate WNL, Airway Patent, O2 Saturation Stable - CARDIOVASCULAR CV Status: Pulse Rate WNL, Blood Pressure Stable - GASTROINTESTINAL GI Status: No Symptoms - POST OP HYDRATION Hydration Status: Adequate & Stable
--- NOTE | 2020-07-04 12:35 | PCM48HPAN ---
Post Anesthesia Note - EVALUATION WITHIN 48HRS OF ANESTHETIC Vital Signs in Normal Range: Yes Patient Participated in Evaluation: Yes Respiratory Function Stable: Yes Airway Patent: Yes Cardiovascular Function Stable: Yes Hydration Status Stable: Yes Pain Control Satisfactory: Yes Nausea and Vomiting Control Satisfactory: Yes Mental Status Recovered: Yes Vital Signs: Last Vital Signs Temp 97.6 F 07/04/20 11:39 Pulse 73 07/04/20 12:00 Resp 14 07/04/20 12:00 BP 113/79 07/04/20 12:00 Pulse Ox 96 07/04/20 12:00
--- NOTE | 2020-07-04 16:41 | OR ---
SURGEON: SIVAN BARRETT MD DATE OF PROCEDURE: 07/04/2020 PREOPERATIVE DIAGNOSIS: Change in bowel habits. POSTOPERATIVE DIAGNOSIS: Normal colonoscopy. PROCEDURE PERFORMED: Diagnostic colonoscopy. PRIMARY SURGEON: Sivan Barrett MD. ANESTHESIA: MAC. INSTRUMENT USED: Olympus colonoscope. EXTENT OF EXAM: To the cecum. PREPARATION: Good. LIMITATIONS: None. INDICATIONS FOR EXAMINATION: The patient is a 45-year-old female who presents with a change in her bowel habits. She has never had a colonoscopy before. The decision was made to proceed with diagnostic colonoscopy. The patient and I discussed the procedure, expected perioperative course, and risks including bleeding, infection, or damage to surrounding structures including perforation. The patient verbalized understanding and wishes to proceed. PROCEDURE IN DETAIL: The patient was brought into the endoscopy suite and placed in the left lateral decubitus position. A time-out was completed verifying the patient's name, age, date of , allergies, and procedure to be performed. Monitored anesthesia care was induced and continuous oxygen was provided via nasal cannula throughout the procedure. After adequate sedation was achieved, a digital rectal exam was performed. This exam was within normal limits. A well-lubricated colonoscope was inserted in the rectum and advanced under direct visualization to the level of the cecum. The cecum was identified by both visual and anatomic landmarks. A photograph was taken of the cecal cap. However, I was unable to retroflex the scope within the cecum due to looping of the scope more proximally. The scope was then fully withdrawn while examining the color, texture, anatomy, and integrity of mucosa from the cecum to the anal canal. The findings were consistent with normal colonic mucosa. The scope was then brought into the rectum and retroflexed to allow visualization of the anal canal opening. This appeared normal and a photograph was taken. The scope was then straightened out and fully withdrawn. The cecum to anus time was 8 minutes. The patient tolerated the procedure well and was transferred to the PACU in stable condition. ENDOSCOPIC DIAGNOSIS: Normal colonoscopy. RECOMMENDATIONS: We will visit with the patient in the postoperative care area. Likely, the change in her bowel habits is due to irritable bowel syndrome. I will visit with her in clinic in 2 weeks to discuss ways to manage this. JARED / UDAY /[id number]
== END 2020-07-04 12:40 | disposition home or self-care (01) ==
LOC: MW.SDS 09:44
PROVIDERS: ATTEND Surgery
DX: R19.4 Change in bowel habit (principal); K80.20 Calculus of gallbladder without cholecystitis without obstruction; R19.7 Diarrhea, unspecified; F41.9 Anxiety disorder, unspecified; F32.9 Major depressive disorder, single episode, unspecified; E66.9 Obesity, unspecified; Z68.38 Body mass index [BMI] 38.0-38.9, adult; Z87.891 Personal history of nicotine dependence; Z79.899 Other long term (current) drug therapy
CPT/HCPCS: 45378; 81025; J2001; J2250; J2704; J3010; J7120; 00812

== ENCOUNTER 2020-07-28 06:55 | Day surgery (SDC) | payer BC ==
[~2020-07-28 06:55] MED LIST changes: -Sodium Chloride 0.9% 10 ML SDV IV PRN; -Sodium Chloride 0.9% 10 ML Syringe FLUSH PRN; -Sodium Chloride 0.9% 2.5 ML Syringe FLUSH PRN; +ceFAZolin 2 GM in Premix Bag 1 BAG IV ONE
[2020-07-28] MEDS ORDERED: Midazolam 1 MG/ML 2 ML SDV ONE (07:07)
[2020-07-28] MEDS ORDERED: fentaNYL 250 MCG/5 ML SDV ONE (07:07)
[2020-07-28] MEDS ORDERED: Propofol 200 MG/20 ML SDV ONE (07:07)
[2020-07-28] MEDS ORDERED: Rocuronium Bromide 50 MG/5 ML Syringe ONE (07:09)
[2020-07-28] MEDS ORDERED: Lidocaine 2% 5 ML SDV ONE (07:09)
[2020-07-28] MEDS ORDERED: Glycopyrrolate 0.2 MG/ML SDV ONE (07:09)
[2020-07-28] MEDS ORDERED: Ondansetron 4 MG/2 ML SDV ONE (07:09)
[2020-07-28] MEDS ORDERED: Ketorolac 30 MG/ML SDV ONE (07:09)
[2020-07-28] MEDS ORDERED: Bupivacaine 25%/EPINEPHrine/PF 30 ML ONE (07:22)
[2020-07-28] MEDS ORDERED: Scopolamine 1.5 MG Transdermal Patch TRDERM PRN (07:36)
--- NOTE | 2020-07-28 07:39 | PCM.PREANE ---
Preanesthetic Assessment - Anesthesia/Transfusion/Family Hx Anesthesia History: Prior Anesthesia Without Reaction Family History of Anesthesia Reaction: No Transfusion History: No Prior Transfusion(s) Intubation History: Unknown - Review of Systems General: No Symptoms Pulmonary: No Symptoms Cardiovascular: No Symptoms Gastrointestinal: Diarrhea (increasing diarrhea) Neurological: No Symptoms Other: Reports: None - Physical Assessment Vital Signs: Last Vital Signs Temp 36.2 C 07/28/20 07:05 Pulse 94 07/28/20 07:05 Resp 16 07/28/20 07:05 BP 141/75 H 07/28/20 07:05 Pulse Ox 97 07/28/20 07:05 Height: 5 ft 4 in Weight: 98.43 kg ASA Class: 2 Mental Status: Alert & Oriented x3 Airway Class: Mallampati = 2 Dentition: Reports: Normal Dentition, [place](s) (x1rt. lower (back)) Thyro-Mental Finger Breadths: 3 Mouth Opening Finger Breadths: 2 ROM/Head Extension: Full Lungs: Clear to Auscultation, Normal Respiratory Effort Cardiovascular: Regular Rate, Regular Rhythm - Lab Values: Laboratory Last Values Urine HCG, Qual NEGATIVE (NEGATIVE) 07/28/20 07:10 - Allergies Allergies/Adverse Reactions: Allergies Allergy/AdvReac Type Severity Reaction Status Date / Time No Known Allergies Allergy Verified 07/24/20 12:18 - Blood Blood Available: No - Anesthesia Plan Pre-Op Medication Ordered: None - Acknowledgements Anesthesia Type Planned: General Anesthesia Pt an Appropriate Candidate for the Planned Anesthesia: Yes Alternatives and Risks of Anesthesia Discussed w Pt/Guardian: Yes Pt/Guardian Understands and Agrees with Anesthesia Plan: Yes PreAnesthesia Questionnaire - Past Health History Medical/Surgical History: Denies Medical/Surgical History HEENT History: Reports: Other (See Below) Other HEENT History: wears glasses/contacts Cardiovascular History: Reports: None Respiratory History: Reports: None Gastrointestinal History: Reports: Cholelithiasis Genitourinary History: Reports: None 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: Musculoskeletal History: Reports: Fracture Other Musculoskeletal History: hx fx left lower leg Neurological History: Reports: None Psychiatric History: Reports: Anxiety, Depression Endocrine/Metabolic History: Reports: Obesity/BMI 30+ (BMI 37.2) Other Endocrine/Metabolic History: thyroid nodule Hematologic History: Reports: None Immunologic History: Reports: None Oncologic (Cancer) History: Reports: None Dermatologic History: Reports: None - Infectious Disease History Infectious Disease History: Reports: None - Past Surgical History Head Surgeries/Procedures: Reports: None HEENT Surgical History: Reports: Oral Surgery Cardiovascular Surgical History: Reports: None Respiratory Surgical History: Reports: None GI Surgical History: Reports: Colonoscopy Female Surgical History: Reports: None Endocrine Surgical History: Reports: None Neurological Surgical History: Reports: None Musculoskeletal Surgical History: Reports: None Oncologic Surgical History: Reports: None Dermatological Surgical History: Reports: None - SUBSTANCE USE Tobacco Use Status *Q: Former Tobacco User (> 10 years ago) Tobacco Use Within Last Twelve Months: No - HOME MEDS Home Medications: Home Meds Cannabidiol (Cbd) Extract [CBD Oil] 1 each PO BEDTIME 02/27/20 [History] Melatonin 10 mg PO BEDTIME 02/27/20 [History] PARoxetine HCL [Paroxetine HCl] 20 mg PO BEDTIME 06/28/20 [History] diphenhydrAMINE [Benadryl] 25 mg PO BEDTIME 06/28/20 [History] - CURRENT (IN HOUSE) MEDS Current Meds: Current Medications Lactated Ringer's (Ringers, Lactated) 1,000 mls @ 125 mls/hr IV ASDIRECTED SIDNEY Last Admin: 07/28/20 07:30 Dose: 125 mls/hr Documented by: Discontinued Medications Fentanyl (Sublimaze) Confirm Administered Dose 250 mcg .ROUTE .STK-MED ONE Stop: 07/28/20 07:08 Glycopyrrolate (Robinul) Confirm Administered Dose 0.8 mg .ROUTE .STK-MED ONE Stop: 07/28/20 07:10 Cefazolin Sodium/Dextrose 2 gm (/ Premix) 50 mls @ 100 mls/hr IV ONETIME ONE Stop: 07/28/20 05:29 Bupivacaine HCl/Epinephrine Bitart (Sensorc Mpf 0.25%-Epi [id number]) Confirm Administered Dose 30 mls @ as directed .ROUTE .STK-MED ONE Stop: 07/28/20 07:23 Ketorolac Tromethamine (Toradol) Confirm Administered Dose 30 mg .ROUTE .STK-MED ONE Stop: 07/28/20 07:10 Lidocaine (Xylocaine-Mpf 2%) Confirm Administered Dose 5 ml .ROUTE .STK-MED ONE Stop: 07/28/20 07:10 Midazolam HCl (Versed 1 Mg/Ml) Confirm Administered Dose 2 mg .ROUTE .STK-MED ONE Stop: 07/28/20 07:08 Ondansetron HCl (Zofran) Confirm Administered Dose 4 mg .ROUTE .STK-MED ONE Stop: 07/28/20 07:10 Propofol (Diprivan 20 Ml) Confirm Administered Dose 200 mg .ROUTE .STK-MED ONE Stop: 07/28/20 07:08 Rocuronium [place] (Rocuronium [place]) Confirm Administered Dose 50 mg .ROUTE .STK-MED ONE Stop: 07/28/20 07:10
[2020-07-28] MEDS ORDERED: Octyl 2-Cyanoacrylate 1 Tube ONE (08:04)
[2020-07-28] MEDS ORDERED: fentaNYL 100 MCG/2 ML SDV IVPUSH PRN (08:15)
[2020-07-28] MEDS ORDERED: Acetaminophen 1,000 MG in Premix Bag 1 BAG IV PRN (08:15)
[2020-07-28] MEDS ORDERED: Acetaminophen/oxyCODONE 325-5 MG Tab PO PRN (09:26)
--- NOTE | 2020-07-28 09:26 | PCM.OPNOTE ---
- General Post-Op/Procedure Note Date of Surgery/Procedure: 07/28/20 Operative Procedure(s): lap sarah Findings: gb was distended and yellow and green cw chronic cholecystitis; large gs at least 15 mm; wall is not thickened; [id number] Pre Op Diagnosis: acute and chronic cholecystitis Post-Op Diagnosis: Same Anesthesia Technique: General ET Tube Primary Surgeon: Geoffrey Khan Pathology: sent Complications: None Condition: Good
--- NOTE | 2020-07-28 09:42 | PCM.POSTAN ---
POST ANESTHESIA ASSESSMENT - MENTAL STATUS Mental Status: Alert, Oriented - VITAL SIGNS Vital Signs: Last Vital Signs Temp 37.4 C 07/28/20 09:18 Pulse 86 07/28/20 09:39 Resp 11 L 07/28/20 09:39 BP 105/57 L 07/28/20 09:39 Pulse Ox 94 L 07/28/20 09:39 - RESPIRATORY Respiratory Status: Respiratory Rate WNL, Airway Patent, O2 Saturation Stable - CARDIOVASCULAR CV Status: Pulse Rate WNL, Blood Pressure Stable - GASTROINTESTINAL GI Status: No Symptoms - PAIN Pain Score: 2 - POST OP HYDRATION Hydration Status: Adequate & Stable
--- NOTE | 2020-07-28 10:50 | PCM48HPAN ---
Post Anesthesia Note - EVALUATION WITHIN 48HRS OF ANESTHETIC Vital Signs in Normal Range: Yes Patient Participated in Evaluation: Yes Respiratory Function Stable: Yes Airway Patent: Yes Cardiovascular Function Stable: Yes Hydration Status Stable: Yes Pain Control Satisfactory: Yes Nausea and Vomiting Control Satisfactory: Yes Mental Status Recovered: Yes Vital Signs: Last Vital Signs Temp 36.7 C 07/28/20 09:47 Pulse 88 07/28/20 10:17 Resp 14 07/28/20 10:17 BP 113/69 07/28/20 10:17 Pulse Ox 96 07/28/20 10:17 - COMMENTS/OBSERVATIONS Free Text/Narrative:: NO anesthesia problems
[2020-07-28 10:56] VITALS: BP 112/68; PULSE 86
--- NOTE | 2020-07-28 13:13 | OR ---
SURGEON: Geoffrey Khan MD DATE OF PROCEDURE: 07/28/2020 PREOPERATIVE DIAGNOSIS: Acute on chronic cholecystitis. POSTOPERATIVE DIAGNOSIS: Acute on chronic cholecystitis. PROCEDURE PROPOSED: Laparoscopic cholecystectomy. PROCEDURE PERFORMED: Laparoscopic cholecystectomy. PRIMARY SURGEON: Geoffrey Khan MD COMPLICATIONS: None. FINDINGS: Gallbladder was quite distended. Wall was yellow and green and wall was not thickened, consistent with chronic cholecystitis. Large gallstone, at least 15 mm. At the conclusion of surgery, a piece of Surgicel was inserted for hemostasis. PROCEDURE NOTE: The patient was taken to the operating room and placed in the supine position. After the intubation of general endotracheal anesthesia, the patient's abdomen was prepped and draped in the usual sterile fashion. Using Home Comfort Zones, a 12 mm trocar was placed supraumbilically and then followed with pneumoperitoneum. A 5 mm trocar was placed in the epigastrium and two 5 mm trocars placed in the right upper quadrant. The placement of the last three trocars was done under direct video supervision. Upon gaining entrance to the abdominal cavity, an extensive examination was then performed. The gallbladder was located and identified and retracted to the dome of the liver at the triangle of Calot. The cystic duct was clipped three more times and then using the endoscopic clip, was transected with placement of the endoscopic clip and transection was performed with care, ensuring the posterior prong of the instruments were clearly visualized prior to exercising the procedure. The gallbladder was dissected using electrocautery out of the liver bed and then removed using endoscopic bag through the umbilical site. The gallbladder was removed en bloc and there was no bile spillage and this was then followed with extensive irrigation until the bile was clear from blood and bile. After the removal of gallbladder, a piece of Surgicel was inserted for hemostasis. The trocars were then removed under direct video supervision. The 12 mm umbilical site was then closed with deep stitches using 0 Vicryl followed with proximal stitches using 3-0 Vicryl and Dermabond. The other three trocar sites were closed with 3-0 Vicryl followed with approximation of skin with Dermabond. The patient was then awakened and extubated and transferred to the recovery room in hemodynamically stable condition. At the conclusion of the surgery, before closing the abdominal wound, instrument count and sponge count were done and were correct. The patient tolerated the procedure well and there were no intraoperative complications. Dr. Khan was present through the whole procedure. Just before surgery, a timeout was called. The patient was identified and procedure identified and procedure started. Intraoperative findings as dictated above. MATHIEU / UDAY /[id number]
== END 2020-07-28 11:25 | disposition home or self-care (01) ==
LOC: MW.SDS 06:55
PROVIDERS: ATTEND Surgery
DX: K80.12 Calculus of gallbladder with acute and chronic cholecystitis without obstruction (principal); F41.9 Anxiety disorder, unspecified; F32.9 Major depressive disorder, single episode, unspecified; E66.9 Obesity, unspecified; Z01.812 Encounter for preprocedural laboratory examination; Z20.828 Contact with and (suspected) exposure to other viral communicable diseases; Z68.37 Body mass index [BMI] 37.0-37.9, adult; Z79.899 Other long term (current) drug therapy; Z87.891 Personal history of nicotine dependence
CPT/HCPCS: 47562; 81025; A9270; J1885; J2001; J2250; J2405; J2704; J3010; J3490; J7120; 00790; 88304

== ENCOUNTER 2022-08-28 08:29 | Emergency (ER) | payer BC ==
[2022-08-28 08:40] VITALS: BP 149/83; PULSE 91
[2022-08-28 10:20] LABS: CARBON DIOXIDE,CO2 27.8 mmol/L (21.0-32.0)
[2022-08-28 10:27] LABS: CORONAVIRUS COVID-19 NAA NEGATIVE (NEGATIVE); INFLUENZA A NAA NEGATIVE (NEGATIVE); INFLUENZA B NAA NEGATIVE (NEGATIVE)
[2022-08-28] MEDS ORDERED: Potassium Chloride 20 MEQ Tab.ER PO ONE (10:35)
== END 2022-08-28 10:47 | disposition home or self-care (01) ==
LOC: MW.ED 08:29
DX: R07.89 Other chest pain (principal); E66.9 Obesity, unspecified; Z68.20 Body mass index [BMI] 20.0-20.9, adult; Z79.899 Other long term (current) drug therapy; Z20.822 Contact with and (suspected) exposure to COVID-19
CPT/HCPCS: 0240U; 36415; 71045; 80053; 84484; 84703; 85025; 93005; 99285; A9270

== ENCOUNTER 2022-08-31 14:02 | Emergency (ER) | payer BC ==
[2022-08-31 16:50] LABS: BLOOD UREA NITROGEN,BUN 8 mg/dL (7.0-18.0); CHLORIDE,CL 103 mmol/L (98-107); GLUCOSE RANDOM 106 mg/dL (74-106); POTASSIUM,K 3.1 mmol/L (3.5-5.1); SODIUM,NA 140 mmol/L (136-145)
[2022-08-31 16:57] LABS: ESTIMATED GFR 116 mL/min (>60)
[2022-08-31] MEDS ORDERED: Potassium Chloride 10% 20 MEQ/15 ML Soln 30 ML UD Cup PO ONE (17:00)
[2022-08-31 18:19] VITALS: BP 113/70; PULSE 76
== END 2022-08-31 17:15 | disposition home or self-care (01) ==
LOC: MW.ED 14:02
DX: R56.9 Unspecified convulsions (principal); R94.6 Abnormal results of thyroid function studies; K14.8 Other diseases of tongue; E66.9 Obesity, unspecified; Z68.27 Body mass index [BMI] 27.0-27.9, adult
CPT/HCPCS: 36415; 70450; 72125; 80053; 80307; 82550; 83605; 83735; 84439; 84443; 84481; 84484; 85025; 85610; 99285; A9270; 93010; 99283

== ENCOUNTER 2022-10-25 20:49 | Observation (INO) | payer BC ==
[2022-10-25] MEDS ORDERED: Lactated Ringers 1,000 ML IV ONE (21:14)
[2022-10-25 22:34] LABS: CARBON DIOXIDE,CO2 25.8 mmol/L (21.0-32.0); POTASSIUM,K 3.6 mmol/L (3.5-5.1)
[2022-10-26 00:30] VITALS: BP 133/86; PULSE 93
[2022-10-26] MEDS ORDERED: Ibuprofen 400 MG Tab PO PRN (02:04)
[2022-10-26] MEDS ORDERED: Acetaminophen 325 MG Tab PO PRN (02:05)
[2022-10-26] MEDS ORDERED: Nicotine 14 MG/24 Hr Patch TRDERM SCH (02:15)
[2022-10-26] MEDS ORDERED: levETIRAcetam 500 MG Tab PO SCH (09:00)
== END 2022-10-26 02:20 | disposition left against medical advice (07) ==
LOC: MW.ED 20:49 → MW.MS 23:48
PROVIDERS: ADMIT Internal Medicine; ATTEND Internal Medicine
DX: E03.9 Hypothyroidism, unspecified (principal); G47.00 Insomnia, unspecified; F41.9 Anxiety disorder, unspecified; F32.A Depression, unspecified; E66.9 Obesity, unspecified; E04.1 Nontoxic single thyroid nodule; M35.89 Other specified systemic involvement of connective tissue; R56.9 Unspecified convulsions; Z79.890 Hormone replacement therapy; Z79.899 Other long term (current) drug therapy; Z98.890 Other specified postprocedural states
CPT/HCPCS: 36415; 70450; 71045; 80053; 81001; 83605; 84443; 85025; 87040; 87086; 93005; 96365; 99285; G0378; J1953; J7060; J7120; 93010